=== PATIENT | male | born 1985 | race Caucasian/White ===

== ENCOUNTER 2024-12-03 10:07 | Emergency (ER) | payer BC, SELFPAY ==
[2024-12-03 10:22] VITALS: BP 144/103
[2024-12-03 11:08] LABS: % Basophils 0.7 % (0-2); % Eosinophils 3.8 % (0-6); % Immature Granulocytes 0.5 % (0-0.5); % Lymphocytes 36.6 % (20.5-51.1); % Monocytes 6.9 % (1.7-9.3); % Neutrophils 51.5 % (42.2-75.2); Absolute Eosinophils 0.2 10^3/uL (0-0.7); Absolute Lymphocytes 1.5 10^3/uL (1.2-3.4); Absolute Monocytes 0.3 10^3/uL (0.1-0.6); Absolute Neutrophils 2.2 10^3/uL (1.4-6.5); Mean Corp Hgb Conc. 33.3 g/dL (33.0-37.0); Mean Corpuscular Hgb 29.6 pg (27.0-31.0); Mean Corpuscular Volume 88.9 fL (80.0-94.0); Mean Platelet Volume 9.7 fL (7.4-10.4); Nucleated Red Blood Cells % 0 % (-); Platelet Count 222 10^3/uL (130-400); White Blood Cell Count 4.2 10^3/uL (4.8-10.8)
[2024-12-03 11:23] LABS: ALT (SGPT) 57 U/L (0-50); AST (SGOT) 23 U/L (17-59); Albumin 4.5 g/dl (3.5-5.0); Alkaline Phosphatase 60 U/L (38-126); Blood Urea Nitrogen 19 mg/dl (9-20); Calcium 9.6 mg/dl (8.4-10.2); Carbon Dioxide 30 mmol/L (22-30); Chloride 104 mmol/L (98-107); Glucose 123 mg/dl (70-99); Potassium 4.6 mmol/L (3.5-5.1); Sodium 142 mmol/L (135-145); Total Bilirubin 0.5 mg/dl (0.2-1.3); Total Protein 7.5 g/dl (6.3-8.2); eGFR > 60.00
[2024-12-03 11:31] LABS: Troponin I < 0.012 ng/ml
[2024-12-03 12:01] VITALS: BP 139/83
--- NOTE | 2024-12-03 12:04 | ED.GENMED ---
History of Present Illness
General
Chief Complaint: Chest Pain
Source: patient
Exam Limitations: none
Time Seen by Provider: 12/03/24 12:01
History of Present Illness
History of Present Illness:
39yoM with no significant past medical history presenting for evaluation of left upper back pain. He was cleaning a baseball field 2 days ago and was moving dirt. He started to experience pain in his left upper back later that day. Pain has been
gradually worsening and is radiating down his left arm today. Pain is worse with certain positions and movement. He has intermittent tingling in his left fingers. He is mainly concerned that he has a pinched nerve. He has been taking ibuprofen
without much relief. He denies any chest pain, shortness of breath, fevers, weight loss.
Phy Exam
General Physical Exam
General Presentation: well appearing and no apparent distress
General Skin: warm and dry
General Habitus: normal
General Mental: alert
ENT Exam
ENT Exam: normocephalic
Cardiovascular Exam
Cardiovascular Exam: regular rate/rhythm, no murmur and normal peripheral pulses (2+ radial pulses bilaterally)
Pulmonary Exam
Pulmonary Exam: lungs clear, no respiratory distress, no rales, no crackles, no rhonchi and no wheezing
Neurological Exam
Neurological Exam: alert and no motor deficits (5/5 strength in bilateral upper extremities)
[place] Coma Scale
Eye Opening: Spontaneous
Verbal Response: Oriented
Motor Response: Obeys Commands
GCS Total Score: 15
Musculoskeletal Exam
Musculoskeletal Exam: other (+Tenderness to L scapular/thoracic region. No skin changes.)
Skin Exam
Skin Exam: normal color and warm/dry
Psychiatric Exam
Psychiatric Exam: normal mood/affect
Scores
Heart Score for Chest Pain Patients
STEMI patient?: No
History: Slightly or Non-Suspicious
ECG: Normal
Age: </= 45 years
Risk Factors: No Risk Factors
Troponin: </= Normal Limit
Heart Score for Chest Pain Patients: 0
Heart Score Risk: 2.5% MACE over next 6 weeks
Course
Orders/Labs/Results
Orders:
Orders
12/03/24 10:24
Electrocardiogram (*1) Urgent
Reason for Study: Chest Pain
EKG- Treatment ONCE
12/03/24 10:53
Complete Blood Count/With Diff Urgent
Comprehensive Metabolic Panel Urgent
Troponin I Urgent
12/03/24 12:34
Acetaminophen [Tylenol] 1,000 mg PO NOW STA
diazePAM [Valium Injection] 5 mg IM NOW STA
CR Chest - 2 Views Urgent
Comment:
Reason For Exam: L upper back pain
12/03/24 12:35
Lidocaine [Lidocaine 4% Patch] 1 patch TOPICAL ONCE ONE
Apply Lidocaine patch(s) to:: L upper back
12/03/24 13:40
Ketorolac [Toradol] 30 mg IM NOW STA
12/03/24 14:03
CT Angio Chest/Abd W/Wo Iv Contrast [CT Chest/abd Angio W/wo Iv Con] Urgent
Comment:
Reason For Exam: Upper back pain radiating down L arm
HYDROmorphone [Dilaudid] 1 mg IV NOW STA
Abnormal Lab Results
12/03/24
10:53
WBC 4.2 L 10^3/uL
(4.8-10.8)
Glucose 123 H mg/dl
(70-99)
ALT 57 H U/L
(0-50)
12/03/24 10:53
12/03/24 10:53
Vital Signs
Initial and Last Documented VS:
Initial Vital Signs
Temp Pulse Resp BP Pulse Ox
97.8 F 81 16 144/103 99
12/03/24 10:22 12/03/24 10:22 12/03/24 10:22 12/03/24 10:22 12/03/24 10:22
Last Documented Vital Signs
Temp Pulse Resp BP Pulse Ox
97.8 F 67 11 135/96 96
12/03/24 10:22 12/03/24 13:00 12/03/24 13:00 12/03/24 13:00 12/03/24 15:11
MDM/Problems Addressed
Differential Diagnosis Includes:
39yoM here with L upper back pain x 2 days after cleaning a baseball field. Pain now radiating down L arm today. Worse with movement. Worried about a pinched nerve. He is mildly hypertensive with otherwise stable vitals. He appears uncomfortable.
There is reproducible thoracic tenderness on exam. Upper extremities are neurovascularly intact. Differential diagnosis includes but is not limited to: Muscular strain, radiculopathy, less likely ACS
Initial ED plan: Cardiac labs and EKG obtained in triage. EKG shows normal sinus rhythm without ischemic changes and troponin within normal limits. Will obtain chest x-ray. IM Valium, Tylenol, and lidocaine patch ordered for pain.
*EKG
Interpreted by ED Provider?: Yes
EKG Intrepretation Date: 12/03/24
Heart Rate: 71
Rate: normal
Rhythm: sinus
[place]: normal axis
Interval: normal interval
QRS Pattern: normal QRS
Ischemia: no ischemia
*Critical Care Note
Total Time (30-74mins, 75-104mins- exclusive of procedures): Not Applicable
Update Note
Update Note:
Chest x-ray is clear without acute findings. Patient was initially put up for discharge. Nursing staff expressed concern that patient appears to be feeling worse. On reassessment, patient was pacing around the room complaining of severe pain in
his left arm. IV Dilaudid and CTA dissection study ordered. CT ultimately came back negative for acute findings. Patient now feeling much better. Suspect musculoskeletal pain. Prescriptions provided for prednisone and Valium. Advised f/u with
PCP and orthopedics. ED return precautions reviewed. Patient in agreement with plan and was discharged in stable condition.
ED Attending Note
-
Portions of this chart may have been created with voice recognition software.� Occasional wrong word or��sound alike� substitutions may have occurred due to the inherent limitations of voice recognition software.
Discharge Plan
Departure
Patient Disposition: Home (Routine Discharge)
Date of Disposition: 12/03/24
Time of Disposition: 15:29
Patient with high blood pressure during this ER visit?: Yes
Discharge Problem:
Upper back pain on left side
Instructions: Upper Back Pain ED
Prescriptions:
New
prednisone 50 mg tablet
50 mg PO DAILY Qty: 5 0RF
diazepam [Valium] 5 mg tablet
5 mg PO Q6H PRN (Reason: muscle spasm) Qty: 12 0RF
Referrals:
Nicko Zimmerman MD [Active] -
Pilo Carmona DO [Family Provider] -
Activity Restrictions/Additional Instructions:
Take prednisone as prescribed. Apply heat to affected area. Use lidocaine patches daily (12 hours on, 12 hours off). You may take ibuprofen 600mg and Tylenol 650mg every 6 hours. Use Valium (muscle relaxer) as needed for breakthrough pain/spasms.
Please follow-up with your family doctor and orthopedics. Return to the ER with any new or worsening symptoms.
Interventions
Interventions:
*Risk Screen - Suicide Last Done: 12/03/24 10:24
*General Assessment Last Done: 12/03/24 12:59
*Neglect/Abuse Screening Last Done: 12/03/24 10:24
*ED- Fall Risk Assessment Last Done: 12/03/24 12:59
*ED COVID-19 Vaccine History Last Done: 12/03/24 12:59
*Nursing Disposition Last Done: 12/03/24 15:36
ED- Cardiac Assessment Last Done: 12/03/24 13:33
Discharge Date and Time
Discharge Date/Time: 12/03/24 15:38
Print Language: SURINAMESE
[2024-12-03 12:06] VITALS: BP 139/83
[2024-12-03] MEDS: TYLENOL 1000 MG PO (12:53)
[2024-12-03] MEDS: LIDOCAINE 4% PATCH 1 PATCH TOPICAL (12:54)
[2024-12-03] MEDS: VALIUM INJECTION 5 MG IM (12:54)
[2024-12-03 13:00] VITALS: BP 135/96
[2024-12-03] MEDS: TORADOL 30 MG IM (13:50)
[2024-12-03] MEDS: DILAUDID 1 MG IV (14:34)
== END 2024-12-03 15:38 | disposition home or self-care (01) ==
LOC: EMR 10:07
PROVIDERS: EMERGENCY PHYSICIAN Emergency Medicine; FAMILY PHYSICIAN Internal Medicine
DX: M54.6 Pain in thoracic spine (principal); M79.602 Pain in left arm; R20.2 Paresthesia of skin; R07.89 Other chest pain; R03.0 Elevated blood-pressure reading, without diagnosis of hypertension
CPT/HCPCS: 99284; 96372 ×2; 96374; 71046; 71275; 74175; 80053; 84484; 85025; 93005; Q9967

== ENCOUNTER → 2024-12-04 12:31 | Outpatient (REF) | payer BC, SELFPAY | LOC: RAD 12:31 | PROVIDERS: ATTENDING PHYSICIAN Nurse Practitioner Family | DX: M54.2 Cervicalgia (principal); M54.12 Radiculopathy, cervical region | CPT/HCPCS: 72052 ==